=== PATIENT | female | born 1975 | race African-American/Black ===

== ENCOUNTER 2022-04-25 12:10 | Emergency (ER) | payer OTHER ==
[~2022-04-25] VITALS: Ht 165.1 cm; Wt 64.0 kg
[~2022-04-25 12:10] MED LIST: ALBU90AE INH; P20 PO
[2022-04-25 12:15] VITALS: BP 116/67
[2022-04-25] MEDS ORDERED: HYDROCODONE/ACETAMINOPHEN 5/325MG TABLET PO STA (13:20)
[2022-04-25] MEDS ORDERED: KETOROLAC 30MG/ML VIAL IM STA ×2 (13:20→16:20)
[2022-04-25 13:55] LABS: CLARITY URINE CLEAR (CLEAR); COLOR URINE DARK YELLOW (YELLOW); KETONES URINE TRACE (NEGATIVE); LEUKOCYTE ESTERASE URINE NEGATIVE (NEGATIVE); NITRITE URINE NEGATIVE (NEGATIVE); OCCULT BLOOD URINE NEGATIVE (NEGATIVE); PH URINE 5.5 (4.5-8.0); PROTEIN URINE TRACE (NEGATIVE); SPECIFIC GRAVITY URINE 1.036 (1.005-1.030)
[2022-04-25 14:17] LABS: *AMPHETAMINES SCREEN URINE NEGATIVE (NEGATIVE); *BARBITURATES SCREEN URINE NEGATIVE (NEGATIVE); *COCAINE SCREEN URINE NEGATIVE (NEGATIVE); METHADONE URINE SCREEN NEGATIVE (NEGATIVE); OPIATES URINE SCREEN NEGATIVE (NEGATIVE)
[2022-04-25 14:25] LABS: BASOPHILS % 0.8 % (0.0-2.0); HEMATOCRIT. 41.3 % (36.0-48.0); HEMOGLOBIN. 13.8 g/dL (12.0-16.0); LYMPHOCYTES % 49.2 % (20.0-50.0); MEAN CORPUSCULAR HEMOGLOBIN 30.1 pg (28.0-32.0); MEAN CORPUSCULAR VOLUME 89.8 fL (81.0-99.0); MEAN PLATELET VOLUME 9.6 fl (7.4-10.4); MONOCYTES % 4.5 % (2.0-8.0); NEUTROPHILS % 42.5 % (40.0-76.0); PLATELET 209 x1000/uL (130-400); RED BLOOD CELL COUNT 4.59 mill/uL (4.2-5.4); RED CELL DISTRIBUTION WIDTH 14.9 % (11.6-14.6)
[2022-04-25 14:50] LABS: CHLORIDE 114 mEq/L (98-107)
[2022-04-25 14:59] LABS: *BENZODIAZEPINES SCREEN URINE PRESUMTIVE POSITIVE (NEGATIVE); CANNABINOID URINE SCREEN PRESUMTIVE POSITIVE (NEGATIVE); PHENCYCLIDINE URINE SCREEN PRESUMTIVE POSITIVE (NEGATIVE)
[2022-04-25 15:04] LABS: ETHANOL BLOOD < 10 mg/dL
[2022-04-25] MEDS ORDERED: NAPR-681 PO (18:14)
[2022-04-25] MEDS ORDERED: TRAM-529 PO (18:14)
[2022-04-25] MEDS ORDERED: DOXY100T28 MT (18:14)
[2022-04-25] MEDS ORDERED: CEFTRIAXONE SODIUM 500 MG/VIAL IM ONE (18:15)
[2022-04-25] MEDS ORDERED: LIDOCAINE HCL 1% 20ML VIAL (Pyxis) INJ INFIL ONE (18:15)
[2022-04-28 04:10] LABS: NEISSERIA GONORRHOEAE NAA Negative (Negative)
== END 2022-04-25 18:30 | disposition home or self-care (01) ==
LOC: ER 13:03
DX: N72 Inflammatory disease of cervix uteri (principal); F19.10 Other psychoactive substance abuse, uncomplicated
CPT/HCPCS: 36415; 71045; 72100; 74176; 80053; 80305; 80320; 81003; 81025; 83690; 85025; 87210; 87491; 87591; 96372; 99285; J0696; J1885; J3490; G0480